=== PATIENT | female | born 1985 | race Caucasian/White ===

== ENCOUNTER 2017-02-27 07:10 | Emergency (ER) | payer OTHER ==
[2017-02-27 07:15] VITALS: BP 120/72; PULSE 85; RESP 16; TEMP 99.4
--- NOTE | 2017-02-27 08:07 | ED ---
Skin/Abscess/FB HPI - General Chief complaint: Skin/Abscess/Foreign Body Stated complaint: poss embedded tick Time Seen by Provider: 02/27/17 07:38 Source: patient Mode of arrival: ambulatory Limitations: no limitations - History of Present Illness Initial comments: He had multiple tics this time him a dog been bringing [employer], her boyfriend removed couple tics this morning no there is a spot on her back she is worried if this is a very tach she had one taken removed about 3 cm from this spot no other complaints review of system is unremarkable otherwise - Related Data Home Medications Medication Instructions Recorded Confirmed No Known Home Medications [No 02/27/17 02/27/17 Known Home Medications] Allergies Allergy/AdvReac Type Severity Reaction Status Date / Time bee pollen Allergy Anaphylaxis Verified 02/27/17 07:16 codeine Allergy Rash/Hives Verified 02/27/17 07:16 Penicillins Allergy Unknown Verified 02/16/15 08:28 Review of Systems ROS Statement: Those systems with pertinent positive or pertinent negative responses have been documented in the HPI. ROS Other: All systems not noted in ROS Statement are negative. Past Medical History Past Medical History: No Reported History History of Any Multi-Drug Resistant Organisms: None Reported Past Surgical History: No Surgical Hx Reported Additional Past Surgical History / Comment(s): leap procedure Past Psychological History: No Psychological Hx Reported Smoking Status: Current every day smoker Past Alcohol Use History: Occasional Past Drug Use History: None Reported, Marijuana General Exam - General Exam Comments Initial Comments: General: The patient is awake and alert, in no distress, and does not appear acutely ill. Skin: Skin is warm and dry and no rashes or lesions are noted. Noticed him area on the middle upper back particularly was removed and then area in the middle back which is about a 3 x 3 cm in size raised and middle of her To, is bit raised, is bit irregular, no signs of any infection looks like a either is an old scab or baired foreign-body Eye: Pupils are equal, round and reactive to light, extra-ocular movements are intact; there is normal conjunctiva bilaterally. Ears, nose, mouth and throat: There are moist mucous membranes and no oral lesions. Neck: The neck is supple, there is no tenderness or JVD. Cardiovascular: There is a regular rate and rhythm. No murmur, rub or gallop is appreciated. Respiratory: To auscultation bilateral, no wheezing no rhonchi no distress respiratory ely noticed Gastrointestinal: Soft, non-distended, non-tender abdomen without masses or organomegaly noted. There is no rebound or guarding present. Bowel sounds are unremarkable. Back: There is no tenderness to palpation in the midline. There is no obvious deformity. Musculoskeletal: Normal ROM, no tenderness, There is no pedal edema. There is no calf tenderness or swelling. No cords were appreciated. Neurological: CN II-XII intact, Cranial nerves III through XII are intact. There are no obvious motor or sensory deficits. Coordination appears grossly intact. Speech is normal. Psychiatric: Cooperative, appropriate mood & affect, normal judgment. Limitations: no limitations Course Vital Signs 02/27/17 07:12 Temperature 99.4 F Pulse Rate 85 Respiratory 16 Rate Blood Pressure 120/72 O2 Sat by Pulse 99 Oximetry This patient is not comfortable with this, she is requesting that we remove the , after verbal consent 1% lidocaine was injected and then using blade 11 this Was removed, didn't look like Him a very thick look more like a scab from home food then will cover the area with gauze as well as dressing she was advised to use Tylenol if needed few hours later Disposition Clinical Impression: Tic Disposition: HOME SELF-CARE Condition: Good Referrals: Branden Gibson MD [Primary Care Provider] - 1-2 days
== END 2017-02-27 08:03 | disposition home or self-care (01) ==
LOC: EC 07:10
DX: S20.459A Superficial foreign body of unspecified back wall of thorax, initial encounter (principal); F17.200 Nicotine dependence, unspecified, uncomplicated; Z88.0 Allergy status to penicillin; Z88.5 Allergy status to narcotic agent; Z91.030 Bee allergy status; W57.XXXA Bitten or stung by nonvenomous insect and other nonvenomous arthropods, initial encounter
CPT/HCPCS: 10120; 99282